=== PATIENT | male | born 1980 | race Caucasian/White ===

== ENCOUNTER 2017-10-17 00:31 | Emergency (ER) ==
[2017-10-17] MEDS ORDERED: LACTATED RINGERS 1,000 ML IV STA ×2 (00:42→01:29)
[2017-10-17] MEDS ORDERED: ZOFRAN 4 MG/2 ML IVP STA (00:42)
--- NOTE | 2017-10-17 00:42 | ED.PDOC ---
General ED Provider: Dr. CARLOZ VILLATORO Chief Complaint: Headache Stated Complaint: Patient states he was outside in the head the last few days. 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 This evening he started having bilateral frontal headaches and nausea with photophobia. Time Seen by Physician: 00:42 Mode of Arrival: Walk-In Information Source: Patient Exam Limitations: No limitations Nursing and Triage Documentation Reviewed and Agree: Yes Does patient meet sepsis criteria?: No System Inflammatory Response Syndrome: Not Applicable Sepsis Protocol: For patient's 13 years and over: Temp is 96.8 and below OR 101 and greater Pulse >90 BPM Resp >20/minute Acutely Altered Mental Status Are patient's symptoms suggestive of a new infection, such as: -Pneumonia -Skin, Soft Tissue -Endocarditis -UTI -Bone, Joint Infection -Implantable Device -Acute Abdominal Infection -Wound Infection -Meningitis -Blood Stream Catheter Infection -Unknown Review of Systems - Review Of Systems Constitutional: Reports: No symptoms Eyes: Reports: No symptoms Ears, Nose, Mouth, Throat: Reports: No symptoms Respiratory: Reports: No symptoms Cardiac: Reports: No symptoms GI: Reports: Nausea : Reports: No symptoms Musculoskeletal: Reports: No symptoms Skin: Reports: No symptoms Neurological: Reports: Anxiety, Headache Endocrine: Reports: No symptoms Hematologic/Lymphatic: Reports: No symptoms All Other Systems: Reviewed and Negative Past Medical History - Past Medical History Previously Healthy: Yes Endocrine: Reports: None Cardiovascular: Reports: None Respiratory: Reports: None Hematological: Reports: None Gastrointestinal: Reports: None Genitourinary: Reports: Kidney stones Neuro/Psych: Reports: None Musculoskeletal: Reports: None Cancer: Reports: None - Surgical History General Surgical History: Reports: Appendectomy - Family History Family History: Reports: None - Social History Smoking Status: Current every day smoker, Heavy tobacco smoker Hx Substance Use: No Alcohol Screening: None - Immunizations Tetanus Shot up to Date: Yes Physical Exam - Physical Exam Appearance: Ill-appearing Pain Distress: Severe Neck: Supple Respiratory: Airway patent, Breath sounds clear, Breath sounds equal, Respirations nonlabored Cardiovascular: RRR, Pulses normal, No rub, No murmur GI/: Soft, Nontender, No masses, Bowel sounds normal, No Organomegaly Musculoskeletal: Normal strength, ROM intact, No edema, No calf tenderness, Limited ROM Neurological: Alert, Oriented Psychiatric: Anxious Interpretation - Radiology Interpretation Radiology Interpretation By: Radiologist Radiology Results: Negative Exam Interpreted: CT Scan (Head ) Critical Care Note - Critical Care Note Total Time (mins): 0 Course - Course Orders, Labs, Meds: Orders Category Date Time Status ED IV/MEDIPORT/POWERPORT .ONCE EMERGENCY 10/17/17 01:02 Active CBC W/ AUTO DIFF Stat LAB 10/17/17 01:15 Received COMPREHENSIVE METABOLIC PANEL Stat LAB 10/17/17 01:15 Received CREATINE KINASE Stat LAB 10/17/17 01:15 Received 0.9 % Sodium Chloride [Saline Flush] MEDS 10/17/17 01:02 Ordered 1 syr IVF PRN PRN Ketorolac Tromethamine [Toradol] MEDS 10/17/17 01:29 Discontinued 30 mg IVP ONCE STA Ondansetron HCl/Pf [Zofran 4 mg/2 ml] MEDS 10/17/17 00:42 Discontinued 4 mg IVP ONCE STA Ringers Lactated Solution [Lactated Ringers] 1,000 ml MEDS 10/17/17 00:42 Discontinued IV BOLUS Ringers Lactated Solution [Lactated Ringers] 1,000 ml MEDS 10/17/17 01:[address] HEAD W/O CONTRAST Stat RADS 10/17/17 00:41 Completed Medications Generic Name Dose Route Start Last Admin Trade Name Freq PRN Reason Stop Dose Admin Lactated Ringer's 1,000 mls @ 1,000 mls/hr 10/17/17 01:29 10/17/17 01:38 Lactated Ringers IV 10/17/17 02:28 1,000 mls/hr BOLUS STA Administration Sodium Chloride 1 syr 10/17/17 01:02 Saline Flush IVF PRN PRN To flush IV Discontinued Medications Generic Name Dose Route Start Last Admin Trade Name Freq PRN Reason Stop Dose Admin Lactated Ringer's 1,000 mls @ 1,000 mls/hr 10/17/17 00:42 10/17/17 01:01 Lactated Ringers IV 10/17/17 01:41 1,000 mls/hr BOLUS STA Administration Ketorolac Tromethamine 30 mg 10/17/17 01:29 10/17/17 01:38 Toradol IVP 10/17/17 01:30 30 mg ONCE STA Administration Ondansetron HCl 4 mg 10/17/17 00:42 10/17/17 01:01 Zofran 4 Mg/2 Ml IVP 10/17/17 00:43 4 mg ONCE STA Administration Vital Signs: Temp Pulse Resp BP Pulse Ox 10/17/17 00:32 96.6 F L 77 20 138/95 H 97 Departure - Departure Time of Disposition: 02:35 Disposition: HOME SELF-CARE Discharge Problem: Headache, Headache, migraine Instructions: Migraine Headache (ED) Condition: Fair Pt referred to PMD for follow-up: No IPMP verified?: No Additional Instructions: Rest Follow up with PC In 3 days Prescriptions: Ondansetron [Zofran Odt] 4 mg PO Q8H PRN #14 tab.rapdis PRN Reason: Nausea / Vomiting Allergies/Adverse Reactions: Allergies No Known Drug Allergies Adverse Reaction (Verified 10/17/17 00:39) Home Medications: Ambulatory Orders Ondansetron [Zofran Odt] 4 mg PO Q8H PRN #14 tab.rapdis 10/17/17 Disposition Discussed With: Patient, Family
[2017-10-17 00:47] VITALS: BP 138/95; TEMP 96.6; BMI 33.2
[2017-10-17] MEDS ORDERED: TORADOL IVP STA (01:29)
--- NOTE | 2017-10-17 01:29 | CT ---
EXAM: CT head without contrast. HISTORY: Headache. PROCEDURE: Contiguous axial CT images of the head without contrast with coronal and sagittal reforma ts. FINDINGS: The ventricles and basal cisterns are normal in size and configuration. No evidence of ma ss or midline shift. No intracranial hemorrhage or evidence of large vessel infarct. No extra-axial fluid collection. There is mucosal thickening in the paranasal sinuses. The mastoid air cells are w ell-aerated and normal in appearance. Impression: Negative CT of the head. Paranasal sinusitis.
[2017-10-17] MEDS ORDERED: IMITREX SUBCUT STA (01:54)
== END 2017-10-17 02:10 | disposition home or self-care (01) ==
LOC: ED 00:31
DX: G43.909 Migraine, unspecified, not intractable, without status migrainosus (principal); F17.210 Nicotine dependence, cigarettes, uncomplicated
CPT/HCPCS: 36415; 80053; 82550; 82553; 85025; 96361; 96372; 96374; 96375; 99283